=== PATIENT | female | born 1995 | race African-American/Black ===

== ENCOUNTER 2022-04-20 19:31 | Inpatient (IN) ==
[2022-04-21] MEDS ORDERED: TRANEXAMIC ACID 1,000 MG in SODIUM CHLORIDE 0.9% 100 ML IV PRN (05:12)
[2022-04-21] MEDS ORDERED: METHYLERGONOVINE 0.2 MG/1 ML AMP IM PRN (05:12)
[2022-04-21] MEDS ORDERED: ceFAZolin 2,000 MG/50 ML DUPLEX IV ONE (05:12)
[2022-04-21] MEDS ORDERED: CARBOPROST TROMETHAMINE 250 MCG/ML AMP IM PRN (05:12)
[2022-04-21] MEDS ORDERED: OXYTOCIN/LR 20 UNIT/1,000 ML BAG IV PRN (05:12)
[2022-04-21] MEDS ORDERED: FAMOTIDINE 20 MG/2 ML VIAL IV ONE (05:12)
[2022-04-21] MEDS ORDERED: miSOPROStoL 200 MCG TABLET RECTAL PRN (05:12)
[2022-04-21] MEDS ORDERED: CITRIC ACID/SODIUM CITRATE 30 ML UDCUP PO ONE (05:12)
[2022-04-21] MEDS ORDERED: LACTATED RINGERS 1,000 ML IV SCH ×2 (05:30→10:00)
[2022-04-21 06:06] LABS: Basophils % 0.3 % (0.0-0.8); Eosinophils % 0.5 % (0.00-10.9); Hematocrit 36.9 VOL% (35.7-47.0); Hemoglobin 12.7 GM/DL (12.0-16.0); Immature Granulocytes % 0.6 %; Immature Granulocytes Absolute 0.05 #; Lymphocytes # 1.5 10*3/uL (1.4-4.0); Lymphocytes % 17.1 % (21.3-54.2); Mean Corpuscular HGB Conc 34.4 GM/DL (32-36); Mean Corpuscular Volume 89.8 FL (87-102); Mean Platelet Volume 11.9 FL (9.6-12.0); Monocytes # 0.7 10*3/uL (0.11-0.8); Monocytes % 7.3 % (1.7-12.7); Neutrophils % 74.2 % (38.7-73.9); Platelet Count 210 T/CUMM (130-400); Red Blood Count 4.11 MC/CUMM (3.8-5.5); Red Cell Distribution Width 13.6 % (9.3-17.3); White Blood Count 8.9 T/CUMM (4-12)
[2022-04-21 06:25] LABS: Albumin 2.8 G/DL (3.4-5.0); Bilirubin,Total 0.6 MG/DL (0.20-1.00); Calcium 8.9 MG/DL (8.5-10.1); Osmolality,Calculated 277.3 MOS/KG (273-304); Potassium 3.7 MMOL/L (3.5-5.1); Total Protein 6.7 G/DL (6.4-8.2)
[2022-04-21] MEDS ORDERED: PHENYLEPHRINE 1 MG/10 ML SYRINGE IV ONE ×3 (07:22→09:27)
[2022-04-21] MEDS ORDERED: BUPIVACAINE SPINAL 0.75% 2 ML AMP SPINAL ONE (07:22)
[2022-04-21] MEDS ORDERED: ONDANSETRON 4 MG/2 ML VIAL ONE (07:22)
[2022-04-21] MEDS ORDERED: buprenorphine HCL 0.3 MG/ML VIAL ONE (07:22)
[2022-04-21] MEDS ORDERED: TRANEXAMIC ACID 1,000 MG/10 ML VIAL ONE (08:17)
[2022-04-21] MEDS ORDERED: SODIUM CHLORIDE 0.9% 0 ML IV ONE (08:17)
[2022-04-21] MEDS ORDERED: OXYTOCIN/LR 20 UNIT/1,000 ML BAG IV ONE ×2 (08:17→09:49)
[2022-04-21] MEDS ORDERED: miSOPROStoL 200 MCG TABLET ONE (08:17)
[2022-04-21] MEDS ORDERED: METHYLERGONOVINE 0.2 MG/1 ML AMP ONE (08:17)
[2022-04-21] MEDS ORDERED: CARBOPROST TROMETHAMINE 250 MCG/ML AMP IM ONE (08:18)
[2022-04-21] MEDS ORDERED: KETOROLAC 30 MG/1 ML VIAL ONE (09:11)
[2022-04-21] MEDS ORDERED: ACETAMINOPHEN INJ 1,000 MG/100 ML VIAL IV ONE (09:11)
[2022-04-21 09:27] LABS: Cord Arterial Blood HCO3 22.1 MMOL/L
[2022-04-21 09:30] LABS: Cord Venous Blood PCO2 50.3 MMHG; Cord Venous Blood PO2 22.5
[2022-04-21 09:41] LABS: Bacteria,Urine Occasional /HPF (Few); Glucose,Urine (UA) Negative (Negative); Ketones,Urine 80 mg/dL (Negative); Mucus,Urine Occasional /LPF (Occasional); Protein,Urine Negative (Negative); Urine Appearance Clear (Clear); Urine Color Yellow (Yellow); Urine pH 7.5 (4.5-8.0)
[2022-04-21 09:42] LABS: Bilirubin,Urine Negative (Negative); Blood, Urine Negative (Negative); Nitrite,Urine Negative (Negative); Urine Urobilinogen 0.2 eU/dL (<2.0)
[2022-04-21] MEDS ORDERED: ONDANSETRON 4 MG/2 ML VIAL IV PRN ×2 (09:49→18:26)
[2022-04-21] MEDS ORDERED: SIMETHICONE CHEW 80 MG TABLET PO PRN (09:49)
[2022-04-21] MEDS ORDERED: ACETAMINOPHEN 325 MG TABLET PO PRN (09:49)
[2022-04-21] MEDS ORDERED: RHO(D) IMMUNE GLOBULIN 300 MCG SYRINGE IM ONE (09:49)
[2022-04-21] MEDS: KETOROLAC 30 MG/1 ML VIAL IV SCH ×2 (15:25→23:57)
[2022-04-21] MEDS: oxyCODONE/ACETAMINOPHEN 5-325 MG TABLET PO PRN (15:34)
[2022-04-21 16:51] LABS: Basophils % 0.2 % (0.0-0.8); Eosinophils % 0.1 % (0.00-10.9); Hematocrit 33.6 VOL% (35.7-47.0); Hemoglobin 11.8 GM/DL (12.0-16.0); Immature Granulocytes % 0.3 %; Immature Granulocytes Absolute 0.04 #; Lymphocytes # 1.1 10*3/uL (1.4-4.0); Lymphocytes % 8.6 % (21.3-54.2); Mean Corpuscular HGB Conc 35.1 GM/DL (32-36); Mean Corpuscular Volume 89.8 FL (87-102); Mean Platelet Volume 11.2 FL (9.6-12.0); Monocytes # 0.9 10*3/uL (0.11-0.8); Monocytes % 7.2 % (1.7-12.7); Neutrophils % 83.6 % (38.7-73.9); Platelet Count 180 T/CUMM (130-400); Red Blood Count 3.74 MC/CUMM (3.8-5.5); Red Cell Distribution Width 13.6 % (9.3-17.3)
[2022-04-21] MEDS: DOCUSATE SODIUM 100 MG CAPSULE PO SCH (22:27)
[2022-04-21] MEDS: ACETAMINOPHEN 500 MG TABLET PO SCH (23:03)
[2022-04-22] MEDS: oxyCODONE/ACETAMINOPHEN 5-325 MG TABLET PO PRN ×4 (05:57→20:04)
[2022-04-22] MEDS: ACETAMINOPHEN 500 MG TABLET PO SCH (06:01)
[2022-04-22 06:03] LABS: Basophils % 0.3 % (0.0-0.8); Eosinophils # 0.1 10*3/uL (0.0-0.87); Hematocrit 33.4 VOL% (35.7-47.0); Hemoglobin 11.5 GM/DL (12.0-16.0); Immature Granulocytes % 0.5 %; Immature Granulocytes Absolute 0.06 #; Lymphocytes # 1.5 10*3/uL (1.4-4.0); Lymphocytes % 12.8 % (21.3-54.2); Mean Corpuscular HGB Conc 34.4 GM/DL (32-36); Mean Corpuscular Volume 90.5 FL (87-102); Mean Platelet Volume 11.4 FL (9.6-12.0); Monocytes # 0.9 10*3/uL (0.11-0.8); Monocytes % 7.5 % (1.7-12.7); Neutrophils % 77.9 % (38.7-73.9); Platelet Count 178 T/CUMM (130-400); Red Blood Count 3.69 MC/CUMM (3.8-5.5); Red Cell Distribution Width 13.7 % (9.3-17.3); White Blood Count 11.4 T/CUMM (4-12)
[2022-04-22] MEDS: MULTIVITAMIN (PRENATAL) TABLET PO SCH (10:41)
[2022-04-22] MEDS: IBUPROFEN 800 MG TABLET PO PRN ×2 (10:41→18:29)
[2022-04-22] MEDS: DOCUSATE SODIUM 100 MG CAPSULE PO SCH ×2 (10:41→20:05)
[2022-04-22] MEDS: MAGNESIUM HYDROXIDE SUSP 30 ML UDCUP PO PRN (20:05)
[2022-04-23] MEDS: oxyCODONE/ACETAMINOPHEN 5-325 MG TABLET PO PRN ×2 (02:10→17:37)
[2022-04-23] MEDS: IBUPROFEN 800 MG TABLET PO PRN ×2 (02:10→17:38)
[2022-04-23] MEDS: DOCUSATE SODIUM 100 MG CAPSULE PO SCH ×2 (09:08→20:39)
[2022-04-23] MEDS: MULTIVITAMIN (PRENATAL) TABLET PO SCH (09:09)
[2022-04-23] MEDS: MAGNESIUM HYDROXIDE SUSP 30 ML UDCUP PO PRN (11:48)
[2022-04-23] MEDS ORDERED: MAGNESIUM CITRATE 300 ML BOTTLE PO PRN (14:01)
[2022-04-24] MEDS: DOCUSATE SODIUM 100 MG CAPSULE PO SCH (09:05)
[2022-04-24] MEDS: MULTIVITAMIN (PRENATAL) TABLET PO SCH (09:05)
[2022-04-24] MEDS: IBUPROFEN 800 MG TABLET PO PRN (09:07)
[2022-04-24] MEDS: oxyCODONE/ACETAMINOPHEN 5-325 MG TABLET PO PRN (09:08)
[2022-04-24] MEDS ORDERED: DIPH/TET/ACEL PERT BOOSTER VACCINE 0.5 ML VIAL IM ONE (11:12)
[2022-04-24 13:20] VITALS: BP 112/60
== END 2022-04-24 15:30 | disposition home or self-care (01) | DRG 788 ==
LOC: N.LD 04-21 05:03 → N.OB 04-21 13:23
PROVIDERS: ADMIT Obstetrics & Gynecology; ATTEND Obstetrics & Gynecology
PROC: LDCSECT (ICD-10-PCS; 2022-04-21 08:40)